=== PATIENT | female | born 2000 | race Caucasian/White ===

== ENCOUNTER 2021-10-03 19:17 | Emergency (ER) | payer OTHER ==
[~2021-10-03] VITALS: Ht 162.6 cm; Wt 54.4 kg
[2021-10-03] MEDS ORDERED: SINGULAIR 10 MG10 M1 PO (19:29)
[2021-10-03] MEDS ORDERED: INTUNIV2 MG PO (19:29)
[2021-10-03] MEDS ORDERED: TORADOL 10 MG T10 MG PO (20:48)
[2021-10-03 21:11] VITALS: BP 127/65
== END 2021-10-03 21:11 | disposition home or self-care (01) ==
LOC: M.ERS 19:17
DX: M79.18 Myalgia, other site (principal); J45.909 Unspecified asthma, uncomplicated; Z79.899 Other long term (current) drug therapy